=== PATIENT | male | born 1965 | race Two or more races ===

== ENCOUNTER 2023-03-09 19:55 | Emergency (ER) | payer SELFPAY ==
[~2023-03-09] VITALS: Ht 165.1 cm; Wt 70.0 kg
[2023-03-09 19:55] VITALS: PULSE 123; RESP 31; O2SAT 97
[2023-03-09] MEDS ORDERED: IPRATROPIUM BROM 0.5 MG/2.5ML INH SOL ONE (20:04)
[2023-03-09] MEDS ORDERED: ALBUTEROL SULF 2.5 MG/0.5ML(0.5%) NEB SOLN ONE (20:04)
[2023-03-09] MEDS ORDERED: IPRATROPIUM BROM 0.5 MG/2.5ML INH SOL NEB ONE (20:15)
[2023-03-09] MEDS ORDERED: ALBUTEROL SULF 2.5 MG/0.5ML(0.5%) NEB SOLN NEB ONE (20:15)
[2023-03-09] MEDS ORDERED: DexAMETHasone SOD PHOS 10MG/1ML VIAL INJ IV ONE (20:15)
[2023-03-09 20:34] LABS: Basophils # (auto) 0 10 ^3/uL (0-0.2); Basophils % (auto) 0.2 % (0.0-2.0); Eosinophils # (auto) 0 10 ^3/uL (0-0.8); Hematocrit 45.8 % (41.0-53.0); Hemoglobin 14.9 g/dL (13.5-17.5); Lymphocytes % (auto) 5.5 % (10.0-50.0); Mean Corpuscular Hemoglobin 28.8 pg (28.0-32.0); Mean Corpuscular Hgb Conc. 32.5 g/dL (32.0-36.0); Mean Corpuscular Volume 88.5 fL (80.0-100.0); Monocytes # (auto) 1.2 10 ^3/uL (0-1.3); Monocytes % (auto) 6.8 % (0.0-12.0); Neutrophils # (auto) 15.2 10 ^3/uL (1.6-8.6); Neutrophils % (auto) 87.5 % (37.0-80.0); Nucleated Red Blood Cells % 0.1 %; Red Blood Cells 5.17 10^6/uL (4.5-5.90); Red Cell Distribution Width 16.1 % (11.8-14.3); White Blood Cell 17.3 10^3/uL (4.4-10.8)
[2023-03-09 20:44] LABS: INR 1.23 (0.9-1.15); Partial Thromboplastin Time 28.1 SEC (24.5-34.5); Prothrombin Time 12.7 sec (9.3-11.8)
[2023-03-09] MEDS ORDERED: NALOXONE HCL 0.4 MG/ML VIAL IV ONE (20:45)
[2023-03-09 20:57] LABS: Alanine Aminotransferase 104 U/L (7-40); Albumin 3.8 g/dL (3.2-4.8); Alkaline Phosphatase 153 U/L (46-116); Anion Gap 12 (5-15); Aspartate Aminotransferase 61 U/L (13-40); BUN/Creatinine Ratio 23.6 (10.0-20.0); Blood Alcohol 5.3 mg/dL (<10); Blood Urea Nitrogen 21 mg/dL (9-23); Calcium 8.8 mg/dL (8.7-10.4); Carbon Dioxide 18 mmol/L (20-30); Chloride 109 mmol/L (98-107); Glucose 105 mg/dL (74-106); Magnesium 2.1 mg/dL (1.6-2.6); Potassium 4.2 mmol/L (3.5-5.1); Sodium 139 mmol/L (136-145)
[2023-03-09 20:58] LABS: Bilirubin, Total 0.9 mg/dL (0.2-1.0); Total Protein 6.1 g/dL (5.7-8.2)
[2023-03-09 21:04] LABS: Lactic Acid w/Reflex 2.3 mmol/L (0.4-2.0)
[2023-03-09] MEDS ORDERED: LACTATED RINGER'S 2,100 ML IV ONE (21:30)
[2023-03-09] MEDS ORDERED: PIPERACILLIN-TAZOB 3.375GM 100 ML IV ONE (21:30)
[2023-03-09] MEDS ORDERED: VANCOMYCIN 1GM/200ML 200 ML IV ONE (21:30)
[2023-03-09 23:03] LABS: Urine Bacteria NONE SEEN /hpf (None Seen); Urine Blood TRACE /uL (Negative); Urine Clarity Clear (Clear); Urine Mucus FEW (None Seen); Urine Protein, UAD Negative (Negative); Urine Specific Gravity 1.018 (1.001-1.035); Urine Urobilinogen Normal (Negative); Urine WBC 1 /hpf (0 - 3)
[2023-03-09 23:10] LABS: Urine Color STRAW (Yellow)
[2023-03-09 23:11] LABS: Base Excess -2.1 mmol/L (-2.0-2.0)
[2023-03-09 23:11] LABS: Amphetamine Screen, Urine Pos (NEGATIVE); Barbiturate Scree,Urine Neg (NEGATIVE); Benzodiazephine Screen, Urine Neg (NEGATIVE); Cannabinoid Screen, Urine Pos (NEGATIVE); Cocaine Screen, Urine Neg (NEGATIVE); Opiate Scree,Urine Neg (NEGATIVE); Phencyclidine Screen, Urine Neg (NEGATIVE)
[2023-03-10 00:30] VITALS: PULSE 115; RESP 26; O2SAT 96
[2023-03-10] MEDS ORDERED: ENOXAPARIN SOD 80 MG/0.8ML SYRINGE SC ONE (00:45)
[2023-03-10] MEDS ORDERED: LACTATED RINGER'S 1,000 ML IV ONE (00:45)
[2023-03-10 07:54] VITALS: BP 134/107; PULSE 118; RESP 16; TEMP 98.6; O2SAT 97
== END 2023-03-10 07:54 | disposition short-term general hospital (02) ==
LOC: ER 19:55
DX: R09.02 Hypoxemia (principal); D72.829 Elevated white blood cell count, unspecified; F15.10 Other stimulant abuse, uncomplicated; R79.89 Other specified abnormal findings of blood chemistry; R00.0 Tachycardia, unspecified; I45.4 Nonspecific intraventricular block; E87.20 Acidosis, unspecified
CPT/HCPCS: 36415; 70450; 71045; 80053; 80307; 80320; 81001; 82140; 83605; 83735; 83880; 84484; 85025; 85610; 85730; 87040; 94640; 96361; 96365; 96368; 96372; 96375; 99291; J1100; J1650; J2310; J2543; J3370; J7644